=== PATIENT | female | born 1955 | race Caucasian/White ===

== ENCOUNTER 2017-12-29 12:19 | Emergency (ER) | payer OTHER ==
[~2017-12-29] VITALS: Ht 167.6 cm; Wt 66.7 kg
[2017-12-29 12:29] VITALS: Ht 167.6 cm; Wt 66.7 kg
[2017-12-29 14:23] VITALS: BP 146/95
== END 2017-12-29 14:23 | disposition home or self-care (01) ==
LOC: ED 12:19
DX: S00.93XA Contusion of unspecified part of head, initial encounter (principal); Z90.49 Acquired absence of other specified parts of digestive tract; W20.8XXA Other cause of strike by thrown, projected or falling object, initial encounter; Y93.89 Activity, other specified; Y92.89 Other specified places as the place of occurrence of the external cause; Y99.8 Other external cause status; Z88.0 Allergy status to penicillin
CPT/HCPCS: J1885; Q0162

== ENCOUNTER 2019-02-24 09:40 | Emergency (ER) | payer MEDICAID ==
[~2019-02-24] VITALS: Ht 167.6 cm; Wt 66.2 kg
[2019-02-24 09:50] VITALS: Ht 167.6 cm; Wt 66.2 kg
[2019-02-24 11:45] VITALS: BP 134/90
== END 2019-02-24 11:45 | disposition home or self-care (01) ==
LOC: ED 09:40
DX: J11.1 Influenza due to unidentified influenza virus with other respiratory manifestations (principal); R11.2 Nausea with vomiting, unspecified; Z88.0 Allergy status to penicillin; Z90.710 Acquired absence of both cervix and uterus
CPT/HCPCS: J1885; Q0162